=== PATIENT | female | born 1955 | race African-American/Black ===

== ENCOUNTER 2016-08-27 17:28 | Emergency (ER) | payer OTHER ==
[~2016-08-27] VITALS: Ht 165.1 cm; Wt 97.1 kg
[~2016-08-27 17:28] MED LIST: ANTIVERT25 MG ORAL; ASPIR 8181 MG ORAL; AZITHROMYCIN250 MG ORAL; BENAZEPRIL HCL40 MG ORAL; BENTYL20 M1 PO; CETIRIZINE HCL10 MG PO; CIPROFLOXACIN500 M2 ORAL; COSOPT1 DRO2 BOTH EYES; DIFLUCAN100 MG ORAL; FLAGYL500 MG ORAL; FLONASE ALLERG9.9 ML NS; FLONASE1 SPRAYS NASAL; FLUTICASONE PRO16 G1 NASAL; HYDROCHLOROTHIA25 MG ORAL; IBUPROFEN600 MG ORAL; ISOSORBIDE MONO20 MG PO; Isosorbide Mononitrate ORAL; LEVAQUIN500 MG ORAL; MONISTAT 744 GM VG; NORCO 5-325 TA1 EACH ORAL; OMEPRAZOLE20 M3 ORAL; OMEPRAZOLE40 M1 ORAL; OYSTER SHELL C500 MG PO; RANITIDINE HCL150 MG ORAL; ROBITUSSIN AC5 ML ORAL; TYLENOL325 MG ORAL; ZOCOR40 MG ORAL; ZOFRAN ODT4 MG ORAL; ZOFRAN4 MG ORAL; ZYRTEC10 MG ORAL
[2016-08-27 17:44] VITALS: BP 149/81
[2016-08-27 18:09] VITALS: BP 144/62
--- NOTE | 2016-08-27 18:28 | Emergency Room Report ---
History of Present Illness General Chief Complaint: Pain Source: Patient Present Illness HPI She presents with complaints of pain to the left upper chest area when she pushes on the region While she was here she states that she now recalls doing some exercises before the discomfort started Patient's daughter is here as well and repeated that she had told her that already Otherwise the patient does not have any discomfort without touch Denies any shortness of breath denies any back or flank pain Pain is 3/10 when she pushes in that region Denies any neck pain or photophobia Allergies: Coded Allergies: PENICILLINS (Verified Allergy, 11/09/13) Patient History Past Medical History: see triage record Pertinent Family History: none Reviewed Nursing Documentation: PMH: Agreed, PSxH: Agreed Nursing Documentation-PMH Hx Cardiac Problems: No Hx Hypertension: Yes - high cholesterol Hx Pacemaker: No Hx Asthma: No Hx COPD: No Hx Diabetes: Yes - borderline Hx Cancer: No Hx Gastrointestinal Problems: No Hx Dialysis: No Hx Neurological Problems: No Hx Cerebrovascular Accident: No Hx Seizures: No Review of Systems All Other Systems: negative except mentioned in HPI Physical Exam Vital Signs Date Time Temp Pulse Resp B/P Pulse Ox O2 Delivery O2 Flow Rate FiO2 08/27/16 17:29 97.7 97 20 159/84 100 Room Air Sp02 EP Interpretation: reviewed, normal General Appearance: well appearing, no apparent distress Head: normocephalic, atraumatic Eyes: bilateral eye EOMI, bilateral eye PERRL ENT: hearing grossly normal, normal pharynx, TMs + canals normal, uvula midline Neck: full range of motion, supple, no meningismus, no bony tend Respiratory: lungs clear, normal breath sounds, no rhonchi, no respiratory distress, no retraction, no accessory muscle use Cardiovascular #1: normal peripheral pulses, regular rate, rhythm, no edema, no gallop, no JVD, no murmur, other - There is obvious reproducible discomfort on palpation left midclavicular area around rib 4/5 region Gastrointestinal: normal bowel sounds, non tender, soft, no mass, no organomegaly, non-distended, no guarding, no hernia, no pulsatile mass, no rebound Genitourinary: no CVA tenderness Musculoskeletal: normal inspection Neurologic: oriented x3, responsive, equipment sterilizer III-XII nml as tested, motor strength/ tone normal, sensory intact Psychiatric: mood/affect normal Skin: normal color, no rash, warm/dry, palpation normal Lymphatic: normal inspection, no adenopathy Medical Decision Making Diagnostic Impression: Primary Impression: chest wall pain ER Course Patient had EKG obtained which was appropriate Blood pressure and hemodynamically remained stable Given the findings and history and exam I did not feel that further examination was required Patient will have close outpatient followup EKG Diagnostic Results Rate: normal Rhythm: NSR ST Segments: other - Nonspecific ST and T-wave changes Rhythm Strip Diag. Results EP Interpretation: yes Rate: 77 Rhythm: NSR, no PVC's, no ectopy Last Vital Signs Date Time Temp Pulse Resp B/P Pulse Ox O2 Delivery O2 Flow Rate FiO2 08/27/16 18:09 97.7 81 19 144/62 100 Room Air Status: improved Disposition: HOME, SELF-CARE Condition: Improved Referrals: Guillaume PARKER,REFERRING (PCP) Patient Instructions: Nonspecific Chest Pain, [id number] Additional Instructions: Patient is provided with the discharge instructions notified to follow up with primary doctor in the next 2-3 days otherwise return to the er with any worsening symptoms. JOSÉ MIGUEL THORNE D.O. Aug 27, 2016 18:28
--- NOTE | 2016-08-30 12:47 | Cardiology Report ---
APPROVED REPORT EKG Measurement Heart [id number] Normal sinus rhythm Nonspecific T wave abnormality Abnormal ECG
== END 2016-08-27 19:00 | disposition home or self-care (01) ==
LOC: EMR 18:20
DX: R07.89 Other chest pain (principal); Z88.0 Allergy status to penicillin; I10 Essential (primary) hypertension; E78.00 Pure hypercholesterolemia, unspecified
CPT/HCPCS: 93005; 99283

== ENCOUNTER 2016-11-20 11:27 | Emergency (ER) | payer OTHER ==
[~2016-11-20] VITALS: Ht 165.1 cm; Wt 97.1 kg
--- NOTE | 2016-11-20 13:51 | Emergency Room Report ---
History of Present Illness General Chief Complaint: Pain Source: Patient Present Illness HPI 61 YO female presents to the ED c/o 04/10 in severity exacerbation of chronic back pain with radiation to posterior thigh, and new onset medial right hip pain with unilateral swelling of the foot and ankle/calf with posterior calf pain x 1 week. denies trauma or fall. pt reports hx of HTN and hyperlipidemia. pt denies recent travel, estrogen therapy, or hx of neoplastic disease. denies fevers , chills, erythema or claudication. pt reports using cane when walking. Denies numbness tingling or loss of sensation or gross motor movements of the extremities, incontinence of bowel or bladder. Denies CP, Palpitations, LOC, AMS , dizziness, Changes in Vision, Sensation, paresthesias, or a sudden severe headache. Allergies: Coded Allergies: PENICILLINS (Verified Allergy, 11/09/13) Patient History Past Medical History: see triage record Past Surgical History: none Pertinent Family History: none Now: No Reviewed Nursing Documentation: PMH: Agreed, PSxH: Agreed Nursing Documentation-PMH Past Medical History: No History, Except For Hx Cardiac Problems: No Hx Hypertension: Yes - high cholesterol Hx Pacemaker: No Hx Asthma: No Hx COPD: No Hx Diabetes: Yes - borderline Hx Cancer: No Hx Gastrointestinal Problems: No Hx Dialysis: No Hx Neurological Problems: No Hx Cerebrovascular Accident: No Hx Seizures: No Review of Systems All Other Systems: negative except mentioned in HPI Physical Exam Vital Signs Date Time Temp Pulse Resp B/P Pulse Ox O2 Delivery O2 Flow Rate FiO2 11/20/16 11:37 98.1 98 16 168/95 100 Room Air Sp02 EP Interpretation: reviewed, normal General Appearance: no apparent distress, alert, GCS 15, non-toxic Head: normocephalic, atraumatic Eyes: bilateral eye PERRL, bilateral eye normal inspection ENT: hearing grossly normal, normal pharynx, no angioedema, normal voice Neck: full range of motion, supple/symm/no masses Respiratory: lungs clear, normal breath sounds, speaking full sentences Cardiovascular #1: regular rate, rhythm, normal capillary refill, edema - right foot and ankle/calf edema/swelling. Cardiovascular #2: 2+ dorsalis pedis (R), 2+ dorsalis pedis (L) Rectal: deferred Musculoskeletal: back normal, gait/station normal, normal range of motion, tender - TTP to the right paraspinal muscles, no midline ttp, ttp to the right lateral hip, posterior calf ttp, and swelling of the right calf and foot noted. no erythema. Neurologic: alert, oriented x3, responsive, motor strength/tone normal, sensory intact, speech normal Psychiatric: judgement/insight normal, memory normal, mood/affect normal, no suicidal/homicidal ideation Skin: normal color, no rash, warm/dry, well hydrated, other - swelling of the right calf and foot noted. no erythema Lymphatic: no adenopathy Medical Decision Making PA Attestation Dr. Nettles is my supervising Physician whom patient management has been discussed with. Diagnostic Impression: Primary Impression: Hip arthritis Additional Impressions: Arthralgia of hip, right Sciatica of right side ER Course Pt. presents to the ED c/o exacerbation of chronic back pain with radiation to posterior thigh, new onset medial right hip pain with unilateral swelling of the foot and ankle/calf x 1 week. denies trauma or fall. Ddx considered but are not limited to Fracture, dislocation, contusion, Sprain/ Strain/Spasm, Epidural abscess, Neoplastic mets, DVT,Edema, cellulitis, lymphedema. Vital signs: are WNL, pt. is afebrile H&PE are most consistent with exacerbation of chronic sciatica, possible hip arthritis, will r/o DVT due to unliateral swelling and pain . ORDERS: - Venous duplex US of the right lower extremity: Negative for DVT. - X-ray Right hip 3 views - negative for fx, Dislocation, or significant soft tissue injury- evidence of arthritic changes- per preliminary read in ED by Dr. Nettles. ED INTERVENTIONS: - pt. declines pain medication - D/w pt. to follow up with PCP , and to return the ED with worsening or new symptoms. at the present time I feel she is stable for close outpatient follow up. DISCHARGE: At this time pt. is stable for d/c to home. Will provide printed patient care instructions, and any necessary prescriptions. Care plan and follow up instructions have been discussed with the patient prior to discharge. Last Vital Signs Date Time Temp Pulse Resp B/P Pulse Ox O2 Delivery O2 Flow Rate FiO2 11/20/16 11:37 98.1 98 16 168/95 100 Room Air Disposition: HOME, SELF-CARE Condition: Stable Scripts Acetaminophen* (TYLENOL EXTRA STRENGTH*) 500 Mg Tablet 500 MG ORAL Q6H, #20 TAB 0 Refills Prov: Mirtha Connors 11/20/16 Referrals: Guillaume APRKER,REFERRING (PCP) Patient Instructions: Arthritis, Peripheral Edema, Sciatica, [id number] Additional Instructions: Take medications as directed. Follow up with PCP in 3-5 days, Follow up with [facility] in 3-5 days. Return sooner to ED if new symptoms occur, or current symptoms become worse. - Please note that this Emergency Department Report was dictated using [employer] coverer technology software, occasionally this can lead to erroneous entry secondary to interpretation by the dictation equipment. Mirtha Connors Nov 20, 2016 13:51
[2016-11-20] MEDS ORDERED: TYLENOL EXTRA500 MG ORAL (13:52)
[2016-11-20 14:00] VITALS: BP 159/89
--- NOTE | 2016-11-21 09:46 | Diagnostic Imaging Report ---
Indications: Right hip pain Technique: Two views right hip Findings: Comparison: None. No fracture, dislocation, lytic destruction, periosteal reaction, surrounding soft tissue swelling, or other acute changes are demonstrated. No deformity, alignment abnormality, arthritic change, soft tissue calcification, or other chronic changes are demonstrated. IMPRESSION: Negative right hip series.
--- NOTE | 2016-11-22 14:29 | Diagnostic Imaging Report ---
APPROVED REPORT CPT Code: 08129 Present Symptoms Lower Extremity Pain: Right RIGHT LEG: Venous imaging reveals a patent deep venous system. There is no evidence of thrombus within the femoral, popliteal or tibial segments. The greater saphenous vein is also within normal limits. Doppler indicates normal spontaneous flow within these segments.
== END 2016-11-20 14:02 | disposition home or self-care (01) ==
LOC: EMR 11:52
DX: M16.11 Unilateral primary osteoarthritis, right hip (principal); M54.31 Sciatica, right side; G89.29 Other chronic pain; I10 Essential (primary) hypertension; Z88.0 Allergy status to penicillin; R22.41 Localized swelling, mass and lump, right lower limb
CPT/HCPCS: 93971; 99284

== ENCOUNTER 2017-06-05 14:14 | Emergency (ER) | payer OTHER ==
[~2017-06-05] VITALS: Ht 165.1 cm; Wt 98.4 kg
[~2017-06-05 14:14] MED LIST changes: +TYLENOL EXTRA500 MG ORAL
--- NOTE | 2017-06-05 15:10 | Emergency Room Report ---
History of Present Illness General Chief Complaint: Skin Rash/Abscess Source: Patient, Medical Record Present Illness HPI 62 YO Female presents to the ED c/o Itching, swelling, and erythema of lesion on the left arm since yesterday. pt. states multiple people have told her is getting worse and " looks infected" pt. reports itching initially, but today has progressed to tenderness, and warm erythema. pt. states she has a weakened immune system and gets admitted often which is why she was reluctant to come to the ED sooner. Denies lesions/rashes elsewhere on the body. Denies new medications or body washes or creams. Denies swelling of the lips, tongue , throat or airway. Denies wheezing, or shortness of breath. Denies recent travel , recent illness or ill contacts. denies blisters, oral lesions, or sloughing of the skin. Allergies: Coded Allergies: PENICILLINS (Verified Allergy, 11/09/13) Patient History Past Medical History: see triage record Past Surgical History: none Pertinent Family History: none Now: No Immunizations: UTD Reviewed Nursing Documentation: PMH: Agreed, PSxH: Agreed Nursing Documentation-PMH Past Medical History: No History, Except For Hx Cardiac Problems: No Hx Hypertension: Yes - high cholesterol Hx Pacemaker: No Hx Asthma: No Hx COPD: No Hx Diabetes: Yes - borderline Hx Cancer: No Hx Gastrointestinal Problems: No Hx Dialysis: No Hx Neurological Problems: No Hx Cerebrovascular Accident: No Hx Seizures: No Review of Systems All Other Systems: negative except mentioned in HPI Physical Exam Vital Signs Date Time Temp Pulse Resp B/P (MAP) Pulse Ox O2 Delivery O2 Flow Rate FiO2 06/05/17 14:19 98.1 99 16 147/93 98 Room Air Sp02 EP Interpretation: reviewed, normal General Appearance: no apparent distress, alert, GCS 15, non-toxic Head: normocephalic, atraumatic Eyes: bilateral eye normal inspection, bilateral eye PERRL ENT: hearing grossly normal, normal voice Neck: full range of motion Respiratory: lungs clear, normal breath sounds, speaking full sentences Cardiovascular #1: regular rate, rhythm, normal capillary refill Cardiovascular #2: 2+ radial (L) Rectal: deferred Musculoskeletal: back normal, gait/station normal, normal range of motion, non- tender Neurologic: alert, oriented x3, responsive, motor strength/tone normal, sensory intact, speech normal Skin: no rash, warm/dry, well hydrated, other - non-blanching erythema, increased ttp, and induration to 1.5cm diameter area on the anterior left upper arm, there is no streaking, no fluctuance, small punctate center, no D/C. no blisters or vesicles. Lymphatic: no adenopathy Medical Decision Making PA Attestation Dr. Shay is my supervising Physician whom patient management has been discussed with. Diagnostic Impression: Primary Impression: Insect bite Qualified Codes: W57.XXXA - Bitten or stung by nonvenomous insect and other nonvenomous arthropods, initial encounter ER Course 62 YO Female presents to the ED c/o Itching, swelling, and erythema of lesion on the left arm since yesterday. pt. states multiple people have told her is getting worse and " looks infected" pt. reports itching initially, but today has progressed to tenderness, and warm erythema. pt. states she has a weakened immune system and gets admitted often which is why she was reluctant to come to the ED sooner. Denies lesions/rashes elsewhere on the body. Denies new medications or body washes or creams. Denies swelling of the lips, tongue , throat or airway. Denies wheezing, or shortness of breath. Denies recent travel , recent illness or ill contacts. denies blisters, oral lesions, or sloughing of the skin. Ddx considered but are not limited to cellulitis, scabies, insect bites, tic bites, spider bites, contact dermatitis, Drug reaction, allergic reaction, fungal infection, lice. Vital signs: are WNL, pt. is afebrile H&PE are most consistent with insect bite with localized reaction suspicious for early cellulitis, no evidence of abscess at this time, no fluctuance . ORDERS: none required at this time, the diagnosis is clinical ED INTERVENTIONS: -Bacitracin is applied. - area of erythema and induration was marked using a skin pen. Pt. given strict instructions to return to the ED with worsening or progression of her symptoms. DISCHARGE: At this time pt. is stable for d/c to home. Will provide printed patient care instructions, and any necessary prescriptions. Care plan and follow up instructions have been discussed with the patient prior to discharge. Last Vital Signs Date Time Temp Pulse Resp B/P (MAP) Pulse Ox O2 Delivery O2 Flow Rate FiO2 06/05/17 14:19 98.1 99 16 147/93 98 Room Air Disposition: HOME, SELF-CARE Condition: Stable Scripts Cephalexin* (KEFLEX*) 500 Mg Capsule 500 MG ORAL EVERY 12 HOURS for 7 Days, #14 CAP 0 Refills Prov: Mirtha Connors 06/05/17 Hydrocortisone (Hydrocortisone Cream 2.5%) Y Cream.appl 1 APPLIC TP BID, #28.3 GM Prov: Mirtha Connors 06/05/17 Mupirocin Calcium (Bactroban) 15 Gm Cream..g. 1 APPLIC TOPIC THREE TIMES A DAY, #15 GM Prov: Mirtha Connors 06/05/17 Referrals: Guillaume PARKER,REFERRING (PCP) Patient Instructions: Insect Bite, [id number] Additional Instructions: Take medications as directed. ---Only take Keflex if area of erythema progresses beyond marked area, or redness progresses. Follow up with a Primary Care Provider in 3-5 days, even if your symptoms have resolved. --Please review list of primary care clinics, if you do not already have a primary care provider Return sooner to ED if new symptoms occur, or current symptoms become worse. - Please note that this Emergency Department Report was dictated using [employer] Corporation[employer]illing administrator technology software, occasionally this can lead to erroneous entry secondary to interpretation by the dictation equipment. Mirtha Connors Jun 05, 2017 15:10
[2017-06-05] MEDS ORDERED: BACTROBAN CR1 APPLIC TOPIC (15:12)
[2017-06-05] MEDS ORDERED: HYDROCORTISONE30 G2 TP (15:12)
[2017-06-05] MEDS ORDERED: CEPHALEXIN500 MG ORAL (15:12)
[2017-06-05] MEDS ORDERED: Bacitracin Oint UD TOPIC ONE (15:15)
[2017-06-05 15:24] VITALS: BP 122/79
== END 2017-06-05 15:26 | disposition home or self-care (01) ==
LOC: EMR 14:26
DX: S40.862A Insect bite (nonvenomous) of left upper arm, initial encounter (principal); Z88.0 Allergy status to penicillin; E78.00 Pure hypercholesterolemia, unspecified; R73.03 Prediabetes; W57.XXXA Bitten or stung by nonvenomous insect and other nonvenomous arthropods, initial encounter; Y92.9 Unspecified place or not applicable
CPT/HCPCS: 99284

== ENCOUNTER → 2017-09-11 | Emergency (ER) | payer OTHER ==
[~2017-09-11] VITALS: Ht 167.6 cm; Wt 98.0 kg
[~2017-09-11] MED LIST changes: +ACETAMINOPHEN-1 EAC1 ORAL; +BACTROBAN CR1 APPLIC TOPIC; +CEPHALEXIN500 MG ORAL; +HYDROCORTISONE30 G2 TP; +MUPIROCIN22 GM TOPIC
[2017-09-11 15:12] VITALS: BP 134/79
[2017-09-11 15:50] VITALS: BP 134/79
--- NOTE | 2017-09-11 17:23 | Emergency Room Report ---
History of Present Illness General Chief Complaint: Pain Source: Patient Present Illness HPI The patient is a 62-year-old female presenting for left breast pain. She states that this has been ongoing for the past year. She has had multiple evaluations including a mammogram and cardiac testing including echo which were all unremarkable. The patient states that pain worsens throughout the day. Pain is better with elevation of the left breast but she states that she does not like wearing bras. It is an 8/10 dull ache. No radiating pain. She denies change in the size of her breast or skin changes. She denies any nipple discharge. She denies other symptoms including shortness of breath, fever, weight loss, night sweats, back pain Allergies: Coded Allergies: PENICILLINS (Verified Allergy, 11/09/13) Patient History Past Medical History: see triage record Pertinent Family History: none Reviewed Nursing Documentation: PMH: Agreed, PSxH: Agreed Nursing Documentation-PMH Hx Cardiac Problems: No Hx Hypertension: Yes - high cholesterol Hx Pacemaker: No Hx Asthma: No Hx COPD: No Hx Diabetes: Yes - borderline Hx Cancer: No Hx Gastrointestinal Problems: No Hx Dialysis: No Hx Neurological Problems: No Hx Cerebrovascular Accident: No Hx Seizures: No Review of Systems All Other Systems: negative except mentioned in HPI Physical Exam Vital Signs Date Time Temp Pulse Resp B/P (MAP) Pulse Ox O2 Delivery O2 Flow Rate FiO2 09/11/17 15:09 97.9 74 20 134/79 99 Room Air Sp02 EP Interpretation: reviewed, normal General Appearance: no apparent distress, alert, GCS 15, non-toxic Head: normocephalic, atraumatic Eyes: bilateral eye normal inspection, bilateral eye PERRL ENT: hearing grossly normal, normal pharynx, no angioedema, normal voice Neck: full range of motion, supple/symm/no masses Respiratory: chest non-tender, lungs clear, normal breath sounds, speaking full sentences Cardiovascular #1: regular rate, rhythm, no edema, no murmur Gastrointestinal: normal bowel sounds, non tender, soft, non-distended, no guarding, no rebound Musculoskeletal: back normal, gait/station normal, normal range of motion, non- tender Neurologic: alert, oriented x3, responsive, motor strength/tone normal, sensory intact, speech normal Psychiatric: judgement/insight normal, memory normal, mood/affect normal, no suicidal/homicidal ideation Skin: normal color, no rash, warm/dry, well hydrated Medical Decision Making PA Attestation Dr. Johnson is my supervising physician. Patient management was discussed with my supervising physician Diagnostic Impression: Primary Impression: Breast pain, left ER Course The patient is a 62-year-old female presenting for left breast pain. Differential diagnoses considered but not limited to: Mastitis, breast mass, nerve impingement, muscle strain, among others Physical exam: Afebrile. No apparent distress RRR. No murmurs Lungs are clear to auscultation bilaterally Chest is nontender. There are pendulum breasts. No masses palpated. No skin changes. No discharge Patient states the pain is relieved when the left breast is elevated The patient was told to attempt a trial of wearing brought to relieve pain. Last mammogram was last year. Patient will followup. ER precautions are given Last Vital Signs Date Time Temp Pulse Resp B/P (MAP) Pulse Ox O2 Delivery O2 Flow Rate FiO2 09/11/17 15:50 97.9 20 134/79 99 Room Air 09/11/17 15:09 74 Status: improved Disposition: HOME, SELF-CARE Condition: Improved Scripts Acetaminophen With Codeine (T#3) (TYLENOL #3 TAB*) Y Tab 1 TAB ORAL Q6HR Y for For Pain, #10 TAB Prov: RENETTA CALVERT 09/11/17 Referrals: Guillaume PARKER,REFERRING (PCP) Patient Instructions: Breast Tenderness Additional Instructions: I discussed my findings with the patient. All questions and concerns have been answered. Treatment and medication compliance have been addressed. I advised the patient that they need to follow up with PMD in 3-5 days. Return to ED if symptoms worsen, new symptoms arise, or if needed for any reason. Patient verbalized understanding of discharge instructions. RENETTA CALVERT Sep 11, 2017 17:23
== END | disposition home or self-care (01) ==
LOC: EMR 15:36
DX: N64.4 Mastodynia (principal); I10 Essential (primary) hypertension; Z88.0 Allergy status to penicillin
CPT/HCPCS: 99283

== ENCOUNTER 2017-09-15 15:07 | Emergency (ER) | payer OTHER ==
[~2017-09-15] VITALS: Ht 167.6 cm; Wt 98.4 kg
[~2017-09-15 15:07] MED LIST changes: -MUPIROCIN22 GM TOPIC
[2017-09-15 15:34] VITALS: BP 141/90
--- NOTE | 2017-09-15 15:51 | Emergency Room Report ---
History of Present Illness General Chief Complaint: General Complaint Source: Patient Present Illness HPI Pt. presents to the ED c/o Itching, swelling, and erythema with 7/10 in severity burning pain of Right forearm with visible stinger in place. onset 1 hour DIRECTOR EPIDEMIOLOGY. pt. denies trauma or fall. reports mild itching however states pain/ burning is more significant. Denies fevers or chills. Denies bleeding or open wounds otherwise. Denies lesions/rashes elsewhere on the body. Denies new medications or body washes or creams. Denies swelling of the lips, tongue , throat or airway. Denies wheezing, or shortness of breath. Denies recent travel , recent illness or ill contacts. denies blisters, oral lesions, or sloughing of the skin. Allergies: Coded Allergies: PENICILLINS (Verified Allergy, 11/09/13) Patient History Past Medical History: see triage record Past Surgical History: none Pertinent Family History: none Reviewed Nursing Documentation: PMH: Agreed, PSxH: Agreed Nursing Documentation-PMH Past Medical History: No History, Except For Hx Hypertension: Yes Hx Pacemaker: No Hx Asthma: No Hx COPD: No Hx Diabetes: Yes - borderline Hx Cancer: No Hx Gastrointestinal Problems: No Hx Dialysis: No Hx Cerebrovascular Accident: No Hx Seizures: No Review of Systems All Other Systems: negative except mentioned in HPI Physical Exam Vital Signs Date Time Temp Pulse Resp B/P (MAP) Pulse Ox O2 Delivery O2 Flow Rate FiO2 09/15/17 15:19 97.8 88 17 141/90 95 Room Air 97.9 Sp02 EP Interpretation: reviewed, normal General Appearance: no apparent distress, alert, GCS 15, non-toxic Head: normocephalic, atraumatic ENT: hearing grossly normal, normal pharynx, no angioedema, normal voice Neck: full range of motion Respiratory: lungs clear, normal breath sounds, speaking full sentences Cardiovascular #1: regular rate, rhythm, normal capillary refill Musculoskeletal: back normal, gait/station normal, normal range of motion Neurologic: alert, oriented x3, responsive, motor strength/tone normal, sensory intact, speech normal, grossly normal Psychiatric: judgement/insight normal Skin: warm/dry, well hydrated, other - erythema and swelling localized in area less than 3 cm in diameter, with visible insect stinger visible. no bleeding. no blisters or vesicles. Lymphatic: no adenopathy Medical Decision Making PA Attestation Dr. Renae is my supervising Physician whom patient management has been discussed with. Diagnostic Impression: Primary Impression: Insect sting Qualified Codes: T63.481A - Toxic effect of venom of other arthropod, accidental (unintentional), initial encounter ER Course Pt. presents to the ED c/o Itching, swelling, and erythema with 7/10 in severity burning pain of Right forearm with visible stinger in place. onset 1 hour DIRECTOR EPIDEMIOLOGY. pt. denies trauma or fall. reports mild itching however states pain/ burning is more significant. Denies fevers or chills. Denies bleeding or open wounds otherwise. Denies lesions/rashes elsewhere on the body. Denies new medications or body washes or creams. Denies swelling of the lips, tongue , throat or airway. Denies wheezing, or shortness of breath. Denies recent travel , recent illness or ill contacts. denies blisters, oral lesions, or sloughing of the skin. Ddx considered but are not limited to cellulitis, scabies, insect bites, tic bites, spider bites, contact dermatitis, Drug reaction, allergic reaction, fungal infection, lice. Vital signs: are WNL, pt. is afebrile H&PE are most consistent with localized reaction from insect sting with stinger present ORDERS: none required at this time, the diagnosis is clinical ED INTERVENTIONS: - Stinger was removed using "credit card technique - utilizing the edge of an alcohol prep pad instead of a card. " -EMLA cream - Bacitracin Tp. DISCHARGE: At this time pt. is stable for d/c to home. Will provide printed patient care instructions, and any necessary prescriptions. Care plan and follow up instructions have been discussed with the patient prior to discharge. Last Vital Signs Date Time Temp Pulse Resp B/P (MAP) Pulse Ox O2 Delivery O2 Flow Rate FiO2 09/15/17 15:34 97.9 74 17 141/90 95 Room Air 97.9 Disposition: HOME, SELF-CARE Condition: Stable Scripts Acetaminophen* (TYLENOL EXTRA STRENGTH*) 500 Mg Tablet 500 MG ORAL Q6H, #20 TAB 0 Refills Prov: Mirtha Connors P.A. 09/15/17 Hydrocortisone (Hydrocortisone Cream 2.5%) Y Cream.appl 1 APPLIC TP BID, #28.3 GM Prov: Mirtha Connors P.A. 09/15/17 Mupirocin* (MUPIROCIN*) 22 Gm Oint...g. 1 APPLIC TOPIC THREE TIMES A DAY, #22 GM Prov: Mirtha Connors 09/15/17 Patient Instructions: Bee, Wasp, or Hornet Sting, Insect Bite, [id number] Additional Instructions: Take medications as directed. Follow up with a Primary Care Provider in 3-5 days, even if your symptoms have resolved. --Please review list of primary care clinics, if you do not already have a primary care provider Return sooner to ED if new symptoms occur, or current symptoms become worse. - Please note that this Emergency Department Report was dictated using [employer] writer technology software, occasionally this can lead to erroneous entry secondary to interpretation by the dictation equipment. Mirtha Connors Sep 15, 2017 15:51
[2017-09-15] MEDS ORDERED: EMLA 5gm tube TOPIC ONE (16:00)
[2017-09-15] MEDS ORDERED: Bacitracin Oint UD TOPIC ONE (16:00)
[2017-09-15] MEDS ORDERED: HYDROCORTISONE30 G2 TP (16:26)
[2017-09-15] MEDS ORDERED: MUPIROCIN22 GM TOPIC (16:26)
[2017-09-15] MEDS ORDERED: TYLENOL EXTRA500 MG ORAL (16:29)
[2017-09-15 16:30] VITALS: BP 135/88
== END 2017-09-15 16:30 | disposition home or self-care (01) ==
LOC: EMR 16:01
DX: T63.481A Toxic effect of venom of other arthropod, accidental (unintentional), initial encounter (principal); L29.9 Pruritus, unspecified; Y92.9 Unspecified place or not applicable; Z88.0 Allergy status to penicillin
CPT/HCPCS: 99283

== ENCOUNTER 2017-12-24 08:39 | Emergency (ER) | payer OTHER ==
[~2017-12-24] VITALS: Ht 165.1 cm; Wt 98.4 kg
[~2017-12-24 08:39] MED LIST changes: +MUPIROCIN22 GM TOPIC
[2017-12-24 09:00] VITALS: BP 149/80
[2017-12-24] MEDS ORDERED: CEPHALEXIN500 MG ORAL (09:07)
[2017-12-24] MEDS ORDERED: PREDNISONE20 MG ORAL (09:07)
[2017-12-24] MEDS ORDERED: HYDROXYZINE PAM25 MG PO (09:07)
[2017-12-24 09:16] VITALS: BP 149/80
--- NOTE | 2017-12-24 09:59 | Emergency Room Report ---
History of Present Illness General Chief Complaint: General Complaint Source: Patient Present Illness HPI 62-year-old female presents ED complaining of rash and itchiness. States she's had these symptoms on and off for the last 3 months. Denies any pain. Denies known food or drug allergies. Denies any new soap or detergent. States that she "feels her rash" on her face but cannot see it. No other aggravating or relieving factors. Denies any other associated symptoms Allergies: Coded Allergies: PENICILLINS (Verified Allergy, 11/09/13) Patient History Past Medical History: DM, HTN Past Surgical History: none Pertinent Family History: none Social History: Denies: smoking, alcohol use, drug use Now: No Immunizations: UTD Reviewed Nursing Documentation: PMH: Agreed; PSxH: Agreed Nursing Documentation-PMH Past Medical History: No History, Except For Hx Hypertension: Yes Hx Pacemaker: No Hx Asthma: No Hx COPD: No Hx Diabetes: Yes - borderline Hx Cancer: No Hx Gastrointestinal Problems: No Hx Dialysis: No History Of Psychiatric Problem: No Hx Cerebrovascular Accident: No Hx Seizures: No Review of Systems All Other Systems: negative except mentioned in HPI Physical Exam Vital Signs Date Time Temp Pulse Resp B/P (MAP) Pulse Ox O2 Delivery O2 Flow Rate FiO2 12/24/17 08:40 98.3 82 16 149/80 95 Room Air 98.2 Sp02 EP Interpretation: reviewed, normal General Appearance: no apparent distress, alert, GCS 15, non-toxic Head: normocephalic, atraumatic Eyes: bilateral eye normal inspection, bilateral eye PERRL ENT: hearing grossly normal, normal pharynx, no angioedema, normal voice Neck: full range of motion, supple/symm/no masses Respiratory: chest non-tender, lungs clear, normal breath sounds, speaking full sentences Cardiovascular #1: regular rate, rhythm, no edema Cardiovascular #2: 2+ carotid (R), 2+ carotid (L), 2+ radial (R), 2+ radial (L) , 2+ dorsalis pedis (R), 2+ dorsalis pedis (L) Gastrointestinal: normal bowel sounds, non tender, soft, non-distended, no guarding, no rebound Rectal: deferred Genitourinary: normal inspection, no CVA tenderness Musculoskeletal: back normal, gait/station normal, normal range of motion, non- tender Neurologic: alert, oriented x3, responsive, motor strength/tone normal, sensory intact, speech normal Psychiatric: judgement/insight normal, memory normal, mood/affect normal, no suicidal/homicidal ideation Reflexes: 3+ bicep (R), 3+ bicep (L), 3+ tricep (R), 3+ tricep (L), 3+ knee (R) , 3+ knee (L) Skin: normal color, warm/dry, well hydrated, rash - papular rash to R side of face Lymphatic: no adenopathy Medical Decision Making Diagnostic Impression: Primary Impression: Rash and nonspecific skin eruption ER Course Hospital Course 62 yo F presents to ED c/o rash Differential diagnoses include: Cellulitis, dermatitis, insect bite, abscess Clinical course Patient placed on stretcher. After initial history, physical exam reveals a female in no acute distress. On exam there is no visible rash detectable. On her face I do feel papules localized to the right side of her face. Unable to visualize any rash. Patient appears clinically well. Patient states at times the rash is inflamed and is red. We will consider antibiotics We will prescribe hydroxyzine and prednisone. Recommend close follow-up with PMD with dermatology referral. Diagnosis - Rash stable and discharged to home with prescription for Hydroxyzine, Prednisone, keflex. Instructed to followup with PMD/dermatology. Instructed return to ED if symptoms recur or worsen Last Vital Signs Date Time Temp Pulse Resp B/P (MAP) Pulse Ox O2 Delivery O2 Flow Rate FiO2 12/24/17 09:16 98.2 85 16 149/80 95 Room Air 98.2 Status: improved Disposition: HOME, SELF-CARE Condition: Stable Scripts Cephalexin* (KEFLEX*) 500 Mg Capsule 500 MG ORAL EVERY 6 HOURS for 7 Days, CAP Prov: Carlos Solano MD 12/24/17 Prednisone* (PREDNISONE*) 20 Mg Tablet 40 MG ORAL DAILY, #10 TAB Prov: Carlos Solano MD 12/24/17 Hydroxyzine Pamoate (HYDROXYZINE PAMOATE) 25 Mg Capsule 25 MG PO QID, #30 CAP Prov: Carlos Solano MD 12/24/17 Referrals: NON PHYSICIAN (PCP) Patient Instructions: Rash, [id number] Carlos Solano MD December 24, 2017 09:59
== END 2017-12-24 09:17 | disposition home or self-care (01) ==
LOC: EMR 09:03
DX: R21 Rash and other nonspecific skin eruption (principal); I10 Essential (primary) hypertension; R73.03 Prediabetes; Z88.0 Allergy status to penicillin
CPT/HCPCS: 99284